=== PATIENT | female | born 1950 | race African-American/Black ===

== ENCOUNTER → 2016-12-04 | Outpatient (CLI) | payer BC, MEDICARE, OTHER ==
--- NOTE | 2016-12-04 09:24 | RAD ---
DATE: 12/04/2016 EXAM: DIGITAL SCREEN BILAT W/CAD HISTORY: Screening COMPARISON: 10/13/2015 This study was interpreted with the benefit of Computerized Aided Detection (CAD). FINDINGS: Breast Density: HETERO The breast parenchyma Is heterogeneiously dense, which could reduce sensitivity of mammography. Breast parenchyma level C. There are masses in the right breast appears similar to the previous exam there is a mass centrally in the left breast, best demonstrated on the cc view very similar to a study 08/06/2013 and a study 07/11/2012. No suspect calcifications are seen in either breast. IMPRESSION: Benign findings BI-RADS CATEGORY: 2 BENIGN FINDING(S) RECOMMENDED FOLLOW-UP: 12M 12 MONTH FOLLOW-UP PQRS compliance statement: Patient information was entered into a reminder system with a target due date 12/04/2017 for the next mammogram. Mammography is a sensitive method for finding small breast cancers, but it does not detect them all and is not a substitute for careful clinical examination. A negative mammogram does not negate a clinically suspicious finding and should not result in delay in biopsying a clinically suspicious abnormality. "Our facility is accredited by the [employer] Mammography Program."
== END | disposition home or self-care (01) ==
LOC: MAMMO 08:23
PROVIDERS: ATTEND Family Medicine
DX: Z12.31 Encounter for screening mammogram for malignant neoplasm of breast (principal)
CPT/HCPCS: G0202; 77067

== ENCOUNTER → 2017-01-09 | Outpatient (CLI) | payer BC, MEDICAID ==
--- NOTE | 2017-01-09 09:05 | RAD ---
Complete abdominal ultrasound 01/09/2017 Indication: Elevated liver enzymes Comparison study: None Discussion: Ultrasound evaluation of the abdomen was performed. Static images were submitted to PACS. Visualized portions of the pancreas are grossly unremarkable. Visualized aorta and IVC are unremarkable. The gallbladder is normal in appearance without evidence of wall thickening, stones, or sludge. No pericholecystic fluid is seen. The liver is mildly hyperechoic throughout. Findings most commonly reflect hepatic steatosis. Visualized portal vein appears patent. In the right lobe of the liver there is an irregular 1.7 cm hypoechoic mass. Mildly increased through transmission appears to be present. No focal hepatic lesions are seen. Surrounding vascularity limits evaluation of color Doppler flow within the lesion. The common bile duct is top normal in diameter at 6 mm. The right kidney is normal in appearance measuring 10 cm in length. The left kidney is somewhat poorly visualized but appears to be grossly unremarkable in appearance measuring approximately 8 to 9 cm in length. Spleen is poorly visualized but this appears to be normal in size. Impression: 1. Mild diffuse increased hepatic echogenicity suggesting hepatic steatosis 2. Indeterminate 1.7 cm mass in the right liver. Recommend further characterization with hepatic protocol MRI
== END | disposition home or self-care (01) ==
LOC: US 07:51
PROVIDERS: ATTEND Family Medicine
DX: R79.89 Other specified abnormal findings of blood chemistry (principal); R74.8 Abnormal levels of other serum enzymes; R94.5 Abnormal results of liver function studies
CPT/HCPCS: 76700

== ENCOUNTER → 2017-01-25 | Outpatient (CLI) | payer BC, MEDICAID ==
[~2017-01-25] MED LIST: GADOBUTROL 7.5 MMOL/7.5 ML VIAL IV ONE
[2017-01-25 10:54] LABS: CREATININE 0.8 mg/dL (0.6-1.0); GFR 86.8
--- NOTE | 2017-01-25 16:15 | RAD ---
Examination: MRI of the abdomen without and with IV contrast. History: History of liver mass Comparison: Ultrasound from 01/09/2017 Technique: Multiplanar, multisequence MR imaging of the abdomen was performed without and with IV contrast. IV contrast used was 6 mL of gadavist. Findings: The visualized bibasal lungs grossly appears unremarkable. In the right lobe of the liver, there is a 1.5 cm high T2 signal focus identified with corresponding mild homogeneous enhancement on the postcontrast images corresponding to vascular enhancement. The visualized spleen, adrenals grossly appears unremarkable. The bilateral kidneys enhance symmetrically. Gallbladder is mildly distended. Small low T2 signal identified in the gallbladder likely probably sludge. Impression: 1. 1.5 cm high T2 lesion identified in the right lobe of the liver with some enhancement probably a hemangioma. Recommend follow-up MRI in 3-6 months to document stability. 2. Gallbladder sludge.
== END | disposition home or self-care (01) ==
LOC: MRI 10:29
PROVIDERS: ATTEND Family Medicine
DX: K82.8 Other specified diseases of gallbladder (principal); K76.9 Liver disease, unspecified; I10 Essential (primary) hypertension; R16.0 Hepatomegaly, not elsewhere classified; Z87.891 Personal history of nicotine dependence
CPT/HCPCS: 36415; 74183; 82565; A9585

== ENCOUNTER → 2017-05-23 | Outpatient (CLI) | payer BC, MEDICAID ==
[2017-05-23 09:50] LABS: GFR 75.8
[2017-05-23 09:50] LABS: CREATININE 0.9 mg/dL (0.6-1.0)
[2017-05-23] MEDS: GADOBUTROL 7.5 MMOL/7.5 ML VIAL IV (10:12)
== END | disposition home or self-care (01) ==
LOC: MRI 08:37
DX: M48.061 Spinal stenosis, lumbar region without neurogenic claudication (principal); M25.78 Osteophyte, vertebrae
CPT/HCPCS: 36415; 72158; 82565; A9585

== ENCOUNTER → 2017-10-02 | Outpatient (CLI) | payer BC, MEDICAID ==
[2017-10-02 11:03] LABS: CREATININE 0.9 mg/dL (0.6-1.0); GFR 75.6
--- NOTE | 2017-10-02 13:30 | RAD ---
MRI of the abdomen without and with intravenous contrast (liver protocol MRI): History: Liver mass, follow-up. Comparison: MR abdomen January 25, 2017. Technique: MRI of the abdomen was performed using multiple sequences and planes both prior to and after intravenous gadolinium, 5 mL Gadavist. Sequences included a pre and post contrasted dynamic T1 weighted series. Findings: Motion artifact is seen on multiple sequences, which could obscure subtle abnormalities. Common bile duct has diameter 6 mm, a relatively normal. No pancreatic inflammation or pancreatic mass is identified. There appears to be an accessory pancreatic duct. No pancreatic mass is appreciated. Spleen and bilateral adrenal glands are unremarkable. Bilateral kidneys without evidence of obstruction. Liver is without evidence of significant fatty infiltration. Previously identified 1.5 cm lesion involving the right hepatic lobe in hepatic segment 6 is unchanged and demonstrates precontrast increased T2 signal. This lesion demonstrates avid enhancement on the 1st postcontrast phase, although it does appear to be associated with transient hepatic intensity difference (THID) more distally on the 1st postcontrast phase. The associated THID then resolves on the later phases. The liver lesion itself demonstrates increased signal on the postcontrast T1 phases relative to the liver parenchyma on all postcontrast phases. Evident on the 1st postcontrast phase only, there are several additional foci of early enhancement. One is in hepatic segment 7 and is measured at 1.9 cm in maximum dimension, similar to previous study. At the same level, in hepatic segment 8, there is a 1.1 cm lesion with similar characteristics which is not confidently seen on previous study. There is an additional lesion involving the left hepatic lobe, segment 2, measuring 1.6 cm, not definitely seen on previous study, although previous study demonstrated motion artifact. In the subcapsular periphery of the liver at the junction of segments 4, 5, and 8, there is a peripheral wedge-shaped focus of increased signal measuring 2.3 cm. These 4 lesions are isointense to the remainder of the liver parenchyma on the later phases. Impression: 1. Previously identified right hepatic lesion is thought unchanged from previous study. Lesion appears associated with THID on initial postcontrast image. This lesion may represent flash fill hemangioma. 2. Multiple additional liver lesions are seen, some of which can be visualized previous study, and some of which are apparently new, although they may have been obscured either by phase of bolus or by motion. No confident correlate is seen on the T2 weighted sequences of these lesions. Recommend follow-up liver protocol MRI in 6 months. Electronically signed by: Pawel Gonzalez MD (10/02/2017 1:26 PM) [place] [id number]
== END | disposition home or self-care (01) ==
LOC: MRI 10:03
PROVIDERS: ATTEND Family Medicine
DX: K76.9 Liver disease, unspecified (principal); I10 Essential (primary) hypertension; Z87.891 Personal history of nicotine dependence
CPT/HCPCS: 36415; 74183; 82565; A9585

== ENCOUNTER → 2018-09-30 | Outpatient (CLI) | payer MEDICARE, MEDICAID ==
[2018-09-30] MEDS: GADOTERATE 7.5 MMOL/15ML VIAL. IVP ONE (10:14)
--- NOTE | 2018-09-30 16:22 | RAD ---
Exam: MRI abdomen without and with contrast INDICATION: Liver mass TECHNIQUE: Multiplanar multisequence MRI of the abdomen was obtained before and after the administration of 8 mL of Dotarem IV contrast. Comparisons: 10/02/2017 FINDINGS: There is redemonstration of the T2 hyperintense cystic mass with inferior right hepatic lobe measuring 1.4 cm in long axis unchanged compared to the prior exam. This lesion demonstrates peripheral enhancement along its posterior margin with progressive filling on more delayed phase imaging. There is redemonstration of a arterially enhancing lesion of the right hepatic dome measuring approximately 1.1 cm on series 11 image 87 which is unchanged compared to the prior exam. The previously seen more posteriorly located right hepatic dome arterially enhancing lesion is less apparent on the current study. Both of these areas become isointense on delayed phase imaging. Additionally, there is peripheral arterial enhancement along the anterior right hepatic lobe and left anterior hepatic lobe which are similar compared to the prior study. No hepatic steatosis. Liver contour is normal. Spleen, pancreas, gallbladder and adrenals are unremarkable. Kidneys demonstrate symmetric enhancement. No perinephric inflammation or hydronephrosis. Visualized bowel is unremarkable. Abdominal aorta has a normal course and caliber. No enlarged abdominal lymph nodes are identified. Visualized lung bases are clear. Bone marrow signal is normal. No ascites. IMPRESSION: 1. Redemonstration of several arterially enhancing lesions within the liver, not significantly changed compared to the prior exam. 2. The largest lesion in the inferior right hepatic lobe shows peripheral enhancement along its posterior margin progressive fill-in and associated VIVEK similar to prior study and likely represents hemangioma. 3. Other lesions also likely represent hemangiomas versus perfusional variants. Electronically signed by: Yony Heaton MD (09/30/2018 4:19 PM) [facility]
--- NOTE | 2018-10-03 08:38 | RAD ---
DATE: 09/30/2018 10:31 AM EXAM: MAMMO FRANKLIN SCREENING BILATERAL HISTORY: routine screening evaluation. COMPARISON: Prior mammographic imaging 12/04/2016, 10/13/2015, 08/26/2014, 08/06/2013 Bilateral CC and MLO views of the breasts were performed. Bilateral breast tomosynthesis was performed in CC and MLO projections. This study was interpreted with the benefit of Computerized Aided Detection (CAD). FINDINGS: Breast Density: SCATTERED The breast parenchyma shows scattered fibroglandular densities. Breast parenchyma level B Benign calcifications are present. The parenchymal pattern appears stable. Well-circumscribed nodular densities bilaterally are grossly stable to at least 08/26/2014. No suspicious masses, microcalcifications or architectural distortion is present to suggest malignancy in either breast. The visualized axillae are unremarkable. IMPRESSION: No mammographic evidence of malignancy. BI-RADS CATEGORY: 2 BENIGN FINDING(S) RECOMMENDED FOLLOW-UP: 12M 12 MONTH FOLLOW-UP Annual screening mammography is recommended, unless clinically indicated sooner based on symptoms or change in physical exam. PQRS compliance statement: Patient information was entered into a reminder system with a target due date for the next mammogram. Mammography is a sensitive method for finding small breast cancers, but it does not detect them all and is not a substitute for careful clinical examination. A negative mammogram does not negate a clinically suspicious finding and should not result in delay in biopsying a clinically suspicious abnormality. "Our facility is accredited by the [employer] Mammography Program."
== END | disposition home or self-care (01) ==
LOC: MRI 10:31
PROVIDERS: ATTEND Family Medicine
DX: Z12.31 Encounter for screening mammogram for malignant neoplasm of breast (principal); K76.89 Other specified diseases of liver; N64.89 Other specified disorders of breast
CPT/HCPCS: 74183; 77063; 77067; A9575

== ENCOUNTER → 2019-10-15 | Outpatient (CLI) | payer MEDICARE, MEDICAID ==
--- NOTE | 2019-10-15 17:34 | RAD ---
DATE: 10/15/2019 8:03 AM EXAM: MAMMO FRANKLIN SCREENING BILATERAL HISTORY: Screening COMPARISON: 09/30/2018, 12/04/2016 Bilateral CC and MLO views of the breasts were performed. Bilateral breast tomosynthesis was performed in CC and MLO projections. This study was interpreted with the benefit of Computerized Aided Detection (CAD). FINDINGS: Breast Density: DENSE The breast Parenchyma is dense, which could reduce the sensitivity of mammography. Breast parenchyma level density D. Stable nodular parenchymal pattern. No suspicious masses, microcalcifications or architectural distortion is present to suggest malignancy in either breast. The visualized axillae are unremarkable. IMPRESSION: No mammographic evidence of malignancy. BI-RADS CATEGORY: 2 BENIGN FINDING(S) RECOMMENDED FOLLOW-UP: 12M 12 MONTH FOLLOW-UP Annual screening mammography is recommended, unless clinically indicated sooner based on symptoms or change in physical exam. PQRS compliance statement: Patient information was entered into a reminder system with a target due date for the next mammogram. Mammography is a sensitive method for finding small breast cancers, but it does not detect them all and is not a substitute for careful clinical examination. A negative mammogram does not negate a clinically suspicious finding and should not result in delay in biopsying a clinically suspicious abnormality. "Our facility is accredited by the [employer] Mammography Program."
== END | disposition home or self-care (01) ==
LOC: MAMMO 07:56
PROVIDERS: ATTEND Family Medicine
DX: Z12.31 Encounter for screening mammogram for malignant neoplasm of breast (principal)
CPT/HCPCS: 77063; 77067

== ENCOUNTER → 2019-10-28 | Outpatient (CLI) | payer MEDICARE, MEDICAID | END | disposition home or self-care (01) | LOC: LAB 11:52 | PROVIDERS: ATTEND Internal Medicine Gastroenterology | DX: Z01.812 Encounter for preprocedural laboratory examination (principal); Z20.828 Contact with and (suspected) exposure to other viral communicable diseases; Z12.11 Encounter for screening for malignant neoplasm of colon | CPT/HCPCS: U0003-CS ==

== ENCOUNTER → 2019-10-30 | Day surgery (SDC) | payer MEDICARE, MEDICAID ==
[~2019-10-30] MED LIST changes: +AMLO10TA8 PO; +ASPI-630 PO; +DULO60CA6 PO; -GADOBUTROL 7.5 MMOL/7.5 ML VIAL IV ONE; +IV RINGERS,LACTATED 1000ML 1,000 ML IV ONE; +LIDOCAINE 2% PF 5 ML VIAL. ONE; +NABU500T PO; +PROPOFOL 10 MG/ML (20ML) VIAL. IV ONE; +TRAZ-123 PO
[2019-10-30 08:16] VITALS: BP 122/69
--- NOTE | 2019-10-30 08:24 | HP ---
ADMIT DATE: REFERRING PHYSICIAN: Tanesha Martell MD REASON FOR CONSULTATION: Colorectal screening. HISTORY OF PRESENT ILLNESS: A 69-year-old -[place] female with past medical history significant for hypertension, arthritis, history of chronic hepatitis B, seen for screening colon exam. Bowel habits are regular without diarrhea and/or constipation. There has been no melena and/or hematochezia. Weight and appetite are stable. There is no family history of colon polyps or colon cancer. She is otherwise without additional complaints. PAST MEDICAL HISTORY: Arthritis, hepatitis B, hypertension. ALLERGIES: None. MEDICATIONS: Include amlodipine, aspirin, Cymbalta, nabumetone and trazodone. FAMILY AND SOCIAL HISTORY: Significant for hypertension. She is a smoker and drinker. PAST SURGICAL HISTORY: Status post hysterectomy. REVIEW OF SYSTEMS: Per records. PHYSICAL EXAMINATION: GENERAL: Reveals a well-nourished, well-developed -[place] female who is alert, cooperative, in no acute distress. VITAL SIGNS: Temperature is 97.2, pulse 80, respirations 20. LUNGS: Clear. CARDIOVASCULAR: Reveals an S1, S2 without S3, S4 or appreciable murmur. ABDOMEN: Reveals a soft abdomen, normal bowel sounds, without appreciable hepatosplenomegaly with infraumbilical hysterectomy incision. EXTREMITIES: Reveals no cyanosis, clubbing or edema. IMPRESSION: Colorectal screening is warranted at this time. Risks and benefits of procedure including risk of hemorrhage and perforation during the operation were discussed. The patient is willing to proceed. TAMIKA WATKINS MD DR: CHEYENNE/tommy JOB#: [id number] / [id number] TANESHA Angeles MD
--- NOTE | 2019-11-03 11:07 | PATHOLOGY ---
[facility] Accession Number: [id number] . 01 Material submitted: . PART A: cecum - CECAL POLYP PART B: colon - SIGMOID COLON POLYP. Modifiers: sigmoid . 01 Clinical history: . SCREENING . 02 Diagnosis: A. Colon biopsy, cecal polyp: - Tubular adenoma. . B. Colon biopsies, sigmoid colon polyp: - Tubulovillous adenoma. . ([facility]:richar; 11/02/2019) R 11/02/2019 1323 Local . 02 Comment: There is no high-grade dysplasia or evidence of malignancy. ([facility]:richar; 11/02/2019) . 02 Electronically signed: . Dawson Cabrera MD, Pathologist NPI- [id number] . 01 Gross description: . A. Received in formalin labeled "Christensen, Lilly, cecal polyp" is a sánchez-brown nodular soft tissue fragment measuring 0.6 x 0.5 x 0.4 cm. The margin is inked and the specimen is bisected and submitted entirely in A1. . B. Received in formalin labeled "Christensen, Lilly, sigmoid colon polyp" are multiple sánchez-brown soft tissue fragments measuring in aggregate 1.3 x 1.0 x 0.3 cm. The specimen is submitted entirely in B1. ([facility]; 11/01/2019) PSYCHIATRIC/PSYCHIATRIC 11/02/2019 1322 Local . 02 Pathologist provided ICD-10: D12.0, D12.5 . 02 CPT . 252870, [id number] Specimen Comment: A courtesy copy of this report has been sent to [phone], [phone] Specimen Comment: [id number] Specimen Comment: Report sent to / DR NUNES Performed at: 01 [facility] [place] [id number] [facility] [address], [place], [place] [id number] MD Ryland Badillo MD Phone: [phone] Performed at: 02 [facility] [address] [place] [address] [id number] MD Dawson Cabrera MD Phone: [phone]
== END | disposition home or self-care (01) ==
LOC: ENDOS 06:17
PROVIDERS: ATTEND Internal Medicine Gastroenterology
DX: Z12.11 Encounter for screening for malignant neoplasm of colon (principal); D12.0 Benign neoplasm of cecum; D12.5 Benign neoplasm of sigmoid colon; K64.0 First degree hemorrhoids; K57.30 Diverticulosis of large intestine without perforation or abscess without bleeding; I10 Essential (primary) hypertension; M19.90 Unspecified osteoarthritis, unspecified site; Z90.710 Acquired absence of both cervix and uterus; Z87.891 Personal history of nicotine dependence; Z72.89 Other problems related to lifestyle; Z79.899 Other long term (current) drug therapy
CPT/HCPCS: 45385; J2704; 88305

== ENCOUNTER → 2020-05-27 | Outpatient (CLI) | payer MEDICARE, MEDICAID ==
[2019-10-30 08:16] VITALS: BP 122/69
[~2020-05-27] MED LIST changes: +AMLO-187 PO; -AMLO10TA8 PO; -IV RINGERS,LACTATED 1000ML 1,000 ML IV ONE; -LIDOCAINE 2% PF 5 ML VIAL. ONE; -NABU500T PO; +NABU500T11 PO; -PROPOFOL 10 MG/ML (20ML) VIAL. IV ONE
--- NOTE | 2020-05-27 10:43 | RAD ---
MR LUMBAR SPINE WO [id number] Date: 05/27/2020 8:06 AM Indication: Reason: chronic lower back pain. right leg radiculopathy / Spl. Instructions: / History : Comparison: MRI L-spine 05/23/2017. MRI abdomen 01/25/2017 Technique: Multi-planar multi-weighted magnetic resonance imaging of the lumbar spine was performed w ithout intravenous contrast using the standard lumbar spine protocol. FINDINGS: The lumbar spine is normally aligned. No acute fracture. Mild multilevel degenerative disc desiccatio n and disc height loss. Scattered vertebral body hemangiomas. The conus terminates at a normal level. No abnormal signal is seen within the visualized distal spina l cord. No clumping of intrathecal nerve roots. No soft tissue abnormality in the visualized abdomen or pelvis. T12-L1: No disc bulge. No facet arthropathy. No significant spinal stenosis or neural foraminal narro wing. L1-L2: Disc bulge. Mild facet arthropathy. No significant spinal stenosis or neural foraminal narrowi ng. L2-L3: Disc bulge with annular tear. Mild facet arthropathy. No significant spinal stenosis. Mild ford ateral neural foraminal narrowing. L3-L4: Disc bulge with annular tear. Mild facet arthropathy. No significant spinal stenosis. Mild ford ateral neural foraminal narrowing. L4-L5: Disc bulge. Mild facet arthropathy. Mild spinal stenosis and lateral recess narrowing. Mild bi lateral neural foraminal narrowing. L5-S1: Disc bulge. Mild facet arthropathy. No significant spinal stenosis. Mild right neural foramina l narrowing. IMPRESSION: Mild lumbar spondylosis, not significantly progressed from the prior. Electronically signed by: Santy Steiner MD (05/27/2020 10:40 AM) [id number]
== END ==
LOC: MRI 09:22
PROVIDERS: ATTEND Family Medicine
DX: M47.26 Other spondylosis with radiculopathy, lumbar region (principal); M48.061 Spinal stenosis, lumbar region without neurogenic claudication
CPT/HCPCS: 72148